=== PATIENT | female | born 1960 | race Caucasian/White ===

== ENCOUNTER 2016-10-18 07:52 | Emergency (ER) | payer MEDICARE ==
[~2016-10-18] VITALS: Wt 48.0 kg
[~2016-10-18 07:52] MED LIST: CARI250T PO; FLUO40CA10 PO; HYDR-762 PO; IBUP800T25 PO; OXYC5TAB PO
--- NOTE | 2016-10-18 08:57 | ERD ---
ER Documentation Chief Complaint Date/Time DATE: 10/18/16 TIME: 08:53 Chief Complaint EDEMA ON BILAT LOWER EXT X1 MONTH, NO PAIN, NO SOB, DENIES MEDICAL HISTORY HPI 56-year-old female presents to ED with bilateral pedal edema 4-6 weeks. Patient stated that the edema comes and goes, but has been more constant in the last week or so. She has history of herniated disc with chronic low back pain, but denies any other medical history. She smokes half pack cigarettes per day, and smokes heroin daily. Uses meth occasionally, denies alcohol use. Denies fever or chills. Denies chest pain or shortness of breath. Denies injuries. ROS All systems reviewed and are negative except as per history of present illness. Medications Home Meds Active Scripts Furosemide* (Lasix*) 20 Mg Tablet, 20 MG PO DAILY, #20 TAB Prov:ANIRUDH MCCLELLAN ASSOCIATE FINANCIAL ANALYST 10/18/16 Ibuprofen* (Motrin*) 800 Mg Tab, 800 MG PO Q6, #20 TAB Prov:GENARO GARCIA MD 05/29/15 Hydrocodone Bit-Acetaminophen* ([place]*) 10-325 Mg Tablet, 1 TAB PO Q6 Y for PAIN , #10 TAB Prov:GENARO GARCIA MD 05/29/15 Reported Medications Carisoprodol* (Soma*) 250 Mg Tablet, 250 MG PO HS 06/07/13 Fluoxetine Hcl* (Prozac*) 40 Mg Capsule, PO DAILY 11/13/11 Oxycodone Hcl* (IR) (Oxycodone Hcl*) 15 Mg Tab, PO TID 11/13/11 Allergies Allergies: Coded Allergies: No Known Allergy (Unverified , 10/18/16) PMhx/Soc History of Surgery: Yes (RIGHT ROTATOR CUFF) Anesthesia Reaction: No Hx Neurological Disorder: No Hx Respiratory Disorders: No Hx Cardiac Disorders: No Hx Psychiatric Problems: Yes (DEPRESSION; ANXIETY) Hx Miscellaneous Medical Probl: Yes (Chronic Back Pain) Hx Alcohol Use: No Hx Substance Use: No Hx Tobacco Use: No Smoking Status: Never smoker Physical Exam Vitals Vital Signs Date Time Temp Pulse Resp B/P Pulse Ox O2 Delivery O2 Flow Rate FiO2 10/18/16 12:28 98.1 72 19 102/57 100 Room Air 3/9/17 08:00 98.1 98 17 126/77 99 Physical Exam General impression: Well-developed, well-nourished. Alert, oriented, in no acute distress Head: Normocephalic, atraumatic. Eyes: PERRL, EOM normal. Conjunctiva not injected. Neck: Supple, nontender. No lymphadenopathy. No nuchal rigidity. Respiration: Normal respiratory effort. Lungs clear to auscultate bilaterally. No wheezes, rales or rhonchi. Cardiovascular: Regular rate and rhythm. Faint S4 gallop noted. Extremities: 3+ pitting edema in the bilateral lower feet, not erythematous, not warm to touch. No erythema, edema noted in rest of the lower extremities. Neuro: Mental status normal, speech normal. SENIOR ADMINISTRATIVE ASSISTANT grossly intact. Skin: Normal turgor. No rash or lesions. Psych: Normal mood and affect. Procedures/MDM EKG: Normal sinus rhythm, normal axis. Poor R-wave progression. QTC [address] segment elevation or depression. No ectopic beats. No other EKG abnormalities. EKG read by Dr. Dyer. Chest x-ray was obtained. Initial 1 view chest x-ray showed a right lower lobe infiltrate or mass. Lateral view was then obtained, no infiltrate or mass was seen on lateral view. Patient does not have cardiomegaly. I doubt CHF. I doubt DVT. Patient does not have any edema in her legs, only on her feet. She is also observed to wear tight leggings. I suspect her edema may be due to constrictive clothing stating that restricts blood return from the her feet. Advised patient to wear loose fitting close, and walk at least 30-60 minutes per day. I will also prescribe her with a low dose of Lasix. Patient appears well, stable for discharge and outpatient management. Medical decision making shared with patient and family. Education provided to patient and family. Patient and family expressed understanding of the plan. Medications on discharge: Lasix. Follow-up: Primary care provider in 2-3 days or return to ED if worse. ANIRUDH MCCLELLAN NP Oct 18, 2016 08:57
--- NOTE | 2016-10-18 09:02 | RADRPT ---
PROCEDURE: Chest Radiograph. CLINICAL INDICATION: Abnormal rhythm. TECHNIQUE: Single frontal chest radiograph. COMPARISON: Chest radiograph 01/08/2016 FINDINGS: The patient is mildly rotated. There is obscuration of the right heart border and suggested right c ardiophrenic opacity. This may represent a right middle lobe infiltrate or mass. The lungs are oth erwise clear. Cardiomediastinal silhouette is within normal limits. The bones are intact. IMPRESSION: 1. Suggested right middle lobe opacity which may represent infiltrate or mass. Recommend further e valuation with lateral view versus CT chest as clinically indicated. RPTAT: KK .Baltazar Germain MD, MD Date Time Electronically viewed and signed by .Baltazar Germain MD, on 10/18/2016 09:01 .B/
--- NOTE | 2016-10-18 11:25 | RADRPT ---
PROCEDURE: Chest Radiograph. CLINICAL INDICATION: Abnormal chest radiograph. TECHNIQUE: Single lateral chest radiograph. COMPARISON: Chest radiograph 10/18/2016. FINDINGS: The suspected right middle lobe opacity on recent chest radiograph is not appreciated on the lateral view. Mild increased density in the expected location of the right middle lobe appears to represen t overlying soft tissues. The lungs are clear on the lateral view. There is no pleural effusion IMPRESSION: 1. No evidence of right middle lobe opacity on the lateral view. The appearance on the frontal vie w may be related to patient rotation. Recommend short interval plain film radiographic follow-up ve rsus CT chest as clinically indicated. RPTAT: KK .Baltazar Germain MD, MD Date Time Electronically viewed and signed by .Baltazar Germain MD, on 10/18/2016 11:25 .B/
[2016-10-18] MEDS ORDERED: FURO-110 PO (12:17)
[2016-10-18 12:28] VITALS: BP 102/57; PULSE 72; RESP 19; TEMP 98.1
== END 2016-10-18 12:32 | disposition home or self-care (01) ==
LOC: FTE 07:52
DX: R60.0 Localized edema (principal); F17.210 Nicotine dependence, cigarettes, uncomplicated
CPT/HCPCS: 71010; 93005